=== PATIENT | female | born 1975 | race Caucasian/White ===

== ENCOUNTER → 2019-09-15 | Day surgery (SDC) | payer BC ==
[~2019-09-15] MED LIST: ADDERALL 10 MG10 MG PO; CHANTIX0.5 MG PO; FENTANYL CITRATE/PF 100MCG/2 ML INJ ONE; LIDOCAINE HCL 2% LOCAL INJ 5 ML SDV VIAL INJ ONE; MIDAZOLAM HCL 2 MG/2 ML VIAL ONE; OVIDREL250 MCG/0. SQ; PROPOFOL IV EMULSION 10 MG/ML 20 ML VIAL ONE
[2019-09-15 11:50] VITALS: BP 106/78
--- NOTE | 2019-09-15 13:08 | Operative Report ---
DATE OF PROCEDURE: 09/15/2019 SURGEON: Gilson Vaca MD PROCEDURES PERFORMED: Esophagogastroduodenoscopy and colonoscopy. PREOPERATIVE DIAGNOSIS: Abdominal pain and diarrhea. POSTOPERATIVE DIAGNOSIS: Hiatal hernia with reflux esophagitis, gastritis, normal colon. Biopsies obtained looking for microscopic colitis. DESCRIPTION OF PROCEDURE: First procedure was EGD: Using Olympus AMANDA video gastroscope was inserted into the patient's oropharynx, advanced to hypopharynx and down to the esophagus. The mucosa present in the esophagus was normal. There was evidence of esophagitis in the distal esophagus above a small sliding type hiatal hernia. Biopsy was obtained. The stomach was entered and insufflated with air. The mucosa in the cardia, fundus, body, and antrum was viewed. There was evidence of gastritis down in the antrum. Photo documentation was obtained as well as biopsy. The duodenal bulb and postbulbar duodenum were viewed to be within normal limits except that my impression here is that the folds seem to be thickened and the villi seem to be absent. The biopsy was obtained looking for celiac disease. The endoscope was then withdrawn back up into the stomach, back up into the esophagus, hypopharynx, oropharynx and out of the patient's mouth and the procedure was ended. Colonoscopy: After normal digital rectal examination, Olympus AMANDA video colonoscope was inserted in the patient's rectum and advanced without difficulty to the level of the cecum. Photo documentation was obtained. The colon was studied from that level back down to the rectum. No inflammatory changes were seen as we got down to the sigmoid colon. Random biopsies were obtained looking for microscopic colitis. The colonoscope was withdrawn from the patient's rectum. The procedure was ended. In conclusion, preop findings of normal colonoscopy. Biopsies obtained looking for microscopic colitis. Gilson Vaca MD SAF/MODL /[id number]
== END | disposition home or self-care (01) ==
LOC: OR 09:20
PROVIDERS: ATTEND Internal Medicine Gastroenterology
DX: K29.50 Unspecified chronic gastritis without bleeding (principal); K58.2 Mixed irritable bowel syndrome; K21.0 Gastro-esophageal reflux disease with esophagitis; K44.9 Diaphragmatic hernia without obstruction or gangrene; E78.5 Hyperlipidemia, unspecified; F90.9 Attention-deficit hyperactivity disorder, unspecified type; F17.210 Nicotine dependence, cigarettes, uncomplicated; Z01.812 Encounter for preprocedural laboratory examination; Z11.59 Encounter for screening for other viral diseases
CPT/HCPCS: 43239; 45380; 81025; J2001; J2250; J2704; J3010; U0002; 45378